=== PATIENT | female | born 1945 | race Caucasian/White ===

== ENCOUNTER 2016-12-29 16:52 | Emergency (ER) | payer MEDICARE ==
--- NOTE | 2016-12-29 18:45 | RAD ---
INDICATION: Chest pain COMPARISON: Chest x-ray dated October 28, 2007 TECHNIQUE: Single AP portable view of the chest was obtained. FINDINGS: Image quality is compromised due to the relative inferiority of a portable chest x-ray. The heart and mediastinum exhibit normal size and contour. The lungs are grossly clear. There is no evidence of a large pleural effusion. Visualized bones are normal for the patient's age. IMPRESSION: No radiographic evidence for acute cardiopulmonary abnormality on this portable chest x-ray.
[2016-12-29 18:47] LABS: Hematocrit 41 % (35-47); Hemoglobin 13.9 g/dl (12.0-16.0); Mean Corpuscular HGB Conc 34 g/dl (31-36); Mean Corpuscular Hemoglobin 31 pg (27-31); Mean Corpuscular Volume 93 fL (80-97); Mean Platelet Volume 9 um3 (7.4-10.4); Red Blood Count 4.43 10^6/ul (4.0-5.4); Red Cell Distribution Width 13 % (10.5-15); White Blood Count 8.7 10^3/ul (3.5-10.8)
[2016-12-29 19:05] LABS: Albumin 3.7 g/dL (3.2-5.2); BUN/Creatinine Ratio 16.9 (8-20); EGFR African American 95.3 (>60); EGFR Non-African American 74.1 (>60); Potassium 3.4 mmol/L (3.5-5.0); Total Bilirubin 0.6 mg/dL (0.2-1.0); Total Protein 6.7 g/dL (6.4-8.9)
[2016-12-29 22:37] VITALS: BP 134/88
--- NOTE | 2016-12-29 22:51 | ED ---
Esthela Newton Seung-Jae, scribed for Mckay Roman MD on 12/29/16 at 1934 . HPI Chest Pain - HPI Summary HPI Summary: Pt is a 71 y/o F BIBA to ED with c/o CP. She states the pain to be sharp and radiating to the arm, neck, and jaw. The pain started at approx. 15:00 today and lasted for 15 mins. before resolving upon resting. She states that the pain was severe initially and currently has been resolved for 2-3 hours. She denies SOB, fever, chills, pedal edema, and N/V. - History of Current Complaint Chief Complaint: EDChestPainROMI Time Seen by Provider: 12/29/16 17:57 Hx Obtained From: Patient Onset/Duration: Started Hours Ago, Resolved Time of Onset: 15:00 Timing: Intermittent, Lasting Minutes Initial Severity: Severe Current Severity: None Pain Intensity: 0 Pain Scale Used: 0-10 Numeric Chest Pain Radiates: Yes Chest Pain Radiates To:: Arm, Jaw, Neck Character: Sharp/Stabbing Aggravating Factor(s): Nothing Alleviating Factor(s): Rest Associated Signs and Symptoms: Negative: Shortness of Breath, Fever, Chills, Nausea, Vomiting, Edema - pedal edema - Allergy/Home Medications Allergies/Adverse Reactions: Allergies Allergy/AdvReac Type Severity Reaction Status Date / Time Statins Allergy Nausea Verified 12/29/16 17:25 Home Medications: Home Medications Hydrochlorothiazide TAB* [Hydrodiuril TAB*] 25 mg PO DAILY 12/29/16 [History Confirmed 12/29/16] Levothyroxine TAB* [Synthroid TAB*] 112 mcg PO DAILY 12/29/16 [History Confirmed 12/29/16] Losartan TAB* [Cozaar TAB*] 25 mg PO DAILY 12/29/16 [History Confirmed 12/29/16] Metoprolol Succinate XL TAB* [Toprol XL TAB*] 25 mg PO DAILY 12/29/16 [History Confirmed 12/29/16] Potassium Chloride [Klor-Con Sprinkle] 10 meq PO DAILY 12/29/16 [History Confirmed 12/29/16] PMH/Surg Hx/FS Hx/Imm Hx Endocrine/Hematology History: Reports: Hx Thyroid Disease - hypothyroidism Cardiovascular History: Reports: Hx Valvular Heart Disease Musculoskeletal History: Denies: Hx Rheumatoid Arthritis - Cancer History Hx Radiation Therapy: No - Surgical History Surgery Procedure, Year, and Place: Partial Hysterectomy 1989 Infectious Disease History: No Infectious Disease History: Denies: Traveled Outside the [place] in Last 30 Days - Family History Known Family History: Positive: Cardiac Disease, Respiratory Disease - COPD in sister Review of Systems Negative: Fever, Chills Positive: Chest Pain - resolved Negative: Shortness Of Breath Negative: Vomiting, Nausea Negative: Edema - negative pedal edema All Other Systems Reviewed And Are Negative: Yes Physical Exam Triage Information Reviewed: Yes Vital Signs On Initial Exam: Initial Vitals Temp Pulse Resp BP Pulse Ox 99 F 68 21 157/95 96 12/29/16 17:14 12/29/16 17:14 12/29/16 17:14 12/29/16 17:14 12/29/16 17:14 Vital Signs Reviewed: Yes Appearance: Positive: Well-Appearing, No Pain Distress Skin: Positive: Warm, Skin Color Reflects Adequate Perfusion, Dry Head/Face: Positive: Normal Head/Face Inspection Eyes: Positive: Normal ENT: Positive: Normal ENT inspection Neck: Positive: Supple, Nontender Respiratory/Lung Sounds: Positive: Clear to Auscultation, Breath Sounds Present Cardiovascular: Positive: RRR Abdomen Description: Positive: Nontender, Soft Bowel Sounds: Positive: Present Musculoskeletal: Positive: Normal Neurological: Positive: Normal Psychiatric: Positive: Normal Diagnostics - Vital Signs Vital Signs Temp Pulse Resp BP Pulse Ox 12/29/16 17:14 99 F 68 21 157/95 96 - Laboratory Lab Results: Lab Results 12/29/16 12/29/16 12/29/16 Range/Units 18:38 18:38 18:38 WBC 8.7 (3.5-10.8) 10^3/ul RBC 4.43 (4.0-5.4) 10^6/ul Hgb 13.9 (12.0-16.0) g/dl Hct 41 (35-47) % MCV 93 (80-97) fL MCH 31 (27-31) pg MCHC 34 (31-36) g/dl RDW 13 (10.5-15) % Plt Count 208 (150-450) 10^3/ul MPV 9 (7.4-10.4) um3 Neut % (Auto) 69.3 (38-83) % Lymph % (Auto) 22.2 L (25-47) % Williamson % (Auto) 6.8 (1-9) % Eos % (Auto) 1.2 (0-6) % Baso % (Auto) 0.5 (0-2) % Absolute Neuts (auto) 6.0 (1.5-7.7) 10^3/ul Absolute Lymphs (auto) 1.9 (1.0-4.8) 10^3/ul Absolute Monos (auto) 0.6 (0-0.8) 10^3/ul Absolute Eos (auto) 0.1 (0-0.6) 10^3/ul Absolute Basos (auto) 0 (0-0.2) 10^3/ul Absolute Nucleated RBC 0 10^3/ul Nucleated RBC % 0 D-Dimer, Quantitative 222 (Less Than 230) ng/mL Sodium 134 (133-145) mmol/L Potassium 3.4 L (3.5-5.0) mmol/L Chloride 99 L (101-111) mmol/L Carbon Dioxide 29 (22-32) mmol/L Anion Gap 6 (2-11) mmol/L BUN 13 (6-24) mg/dL Creatinine 0.77 (0.51-0.95) mg/dL Est GFR ( Amer) 95.3 (>60) Est GFR (Non-Af Amer) 74.1 (>60) BUN/Creatinine Ratio 16.9 (8-20) Glucose 97 (70-100) mg/dL Lactic Acid (0.5-2.0) mmol/L Calcium 9.0 (8.6-10.3) mg/dL Total Bilirubin 0.60 (0.2-1.0) mg/dL AST 19 (13-39) U/L ALT 20 (7-52) U/L Alkaline Phosphatase 42 (34-104) U/L Troponin I 0.00 (<0.04) ng/mL Total Protein 6.7 (6.4-8.9) g/dL Albumin 3.7 (3.2-5.2) g/dL Globulin 3.0 (2-4) g/dL Albumin/Globulin Ratio 1.2 (1-3) 12/29/16 12/29/16 Range/Units 18:38 21:25 WBC (3.5-10.8) 10^3/ul RBC (4.0-5.4) 10^6/ul Hgb (12.0-16.0) g/dl Hct (35-47) % MCV (80-97) fL MCH (27-31) pg MCHC (31-36) g/dl RDW (10.5-15) % Plt Count (150-450) 10^3/ul MPV (7.4-10.4) um3 Neut % (Auto) (38-83) % Lymph % (Auto) (25-47) % Williamson % (Auto) (1-9) % Eos % (Auto) (0-6) % Baso % (Auto) (0-2) % Absolute Neuts (auto) (1.5-7.7) 10^3/ul Absolute Lymphs (auto) (1.0-4.8) 10^3/ul Absolute Monos (auto) (0-0.8) 10^3/ul Absolute Eos (auto) (0-0.6) 10^3/ul Absolute Basos (auto) (0-0.2) 10^3/ul Absolute Nucleated RBC 10^3/ul Nucleated RBC % D-Dimer, Quantitative (Less Than 230) ng/mL Sodium (133-145) mmol/L Potassium (3.5-5.0) mmol/L Chloride (101-111) mmol/L Carbon Dioxide (22-32) mmol/L Anion Gap (2-11) mmol/L BUN (6-24) mg/dL Creatinine (0.51-0.95) mg/dL Est GFR ( Amer) (>60) Est GFR (Non-Af Amer) (>60) BUN/Creatinine Ratio (8-20) Glucose (70-100) mg/dL Lactic Acid 1.3 (0.5-2.0) mmol/L Calcium (8.6-10.3) mg/dL Total Bilirubin (0.2-1.0) mg/dL AST (13-39) U/L ALT (7-52) U/L Alkaline Phosphatase (34-104) U/L Troponin I 0.01 (<0.04) ng/mL Total Protein (6.4-8.9) g/dL Albumin (3.2-5.2) g/dL Globulin (2-4) g/dL Albumin/Globulin Ratio (1-3) Result Diagrams: 12/29/16 18:38 12/29/16 18:38 Lab Statement: Any lab studies that have been ordered have been reviewed, and results considered in the medical decision making process. - Radiology Chest XR Xray Interpretation: No Acute Changes - Impression: No radiographic evidence for acute cardiopulmonary abnormality on this portable chest x-ray. Radiology Interpretation Completed By: Radiologist - EKG 17:47 Cardiac Rate: NL - 66 bpm EKG Rhythm: Sinus Rhythm ST Segment: Non-Specific Re-Evaluation - Re-Evaluation First Eval Re-Evaluation Time: 22:00 Change: Improved Chest Pain Course/Dx - Course Course Of Treatment: Ms. Manrique had about 15 minutes of an atypical CP about 3 hours prior to arrival. She has been asymptomatic since. Her W/U including ecg , CXR and labs (d-dimer and delayed troponin) was all negative and I recommended prompt F/U for further W/U. - Diagnoses Provider Diagnoses: Chest pain Discharge - Discharge Plan Condition: Stable Disposition: HOME Patient Education Materials: Chest Pain (ED) Referrals: Liza Suarez MD [Primary Care Provider] - 3 Days The documentation as recorded by the Esthela wolf Seung-Jae accurately reflects the service I personally performed and the decisions made by Abel olivo Richard L, MD.
== END 2016-12-29 22:41 | disposition home or self-care (01) ==
LOC: ED 16:52
DX: R07.9 Chest pain, unspecified (principal)
CPT/HCPCS: 36415; 71010; 80053; 83605; 84484; 85025; 85379; 93005; 99283